=== PATIENT | male | born 1990 | race African-American/Black ===

== ENCOUNTER 2017-04-08 15:00 | Emergency (ER) | payer BC, OTHER ==
[2017-04-08 15:14] VITALS: BP 128/77
--- NOTE | 2017-04-08 17:01 | EDM.PDOC ---
ED HPI GENERAL MEDICAL PROBLEM - General Chief Complaint: Genitourinary Problem Stated Complaint: STD TESTING Time Seen by Provider: 04/08/17 15:40 Source of Information: Reports: Patient History Limitations: Reports: No Limitations - History of Present Illness INITIAL COMMENTS - FREE TEXT/NARRATIVE: 27-year-old male presents for evaluation treatment of STD testing. Patient reports on 03-22 he tested positive for chlamydia. Reports he was given azithromycin 1 g 1 dose. Reports he had intercourse last 2 and half weeks ago. He states this past week he's now been experiencing similar symptoms again. Current symptoms include dysuria and increased urinary frequency. He is unsure if he is having any penile discharge. No penile rashes. No fevers, chills, nausea or vomiting. Patient reports his partner was recently tested. She does not know her results and should find out tomorrow. - Related Data Allergies Allergy/AdvReac Type Severity Reaction Status Date / Time No Known Allergies Allergy Verified 05/15/16 12:29 Home Meds: Home Meds . [No Known Home Meds] 04/08/17 [History] Past Medical History - Past Health History Medical/Surgical History: Denies Medical/Surgical History - Past Surgical History Male Surgical History: Reports: Other (See Below) Other Male Surgeries/Procedures: tested positive for STD Social & Family History - Tobacco Use Smoking Status *Q: Never Smoker - Caffeine Use Caffeine Use: Reports: None - Recreational Drug Use Recreational Drug Use: No Recreational Drug Type: Reports: Marijuana/Hashish ED ROS GENERAL - Review of Systems Review Of Systems: See Below Constitutional: Denies: Fever, Chills GI/Abdominal: Denies: Nausea, Vomiting : Reports: Discharge (questionable), Dysuria, Frequency Skin: Denies: Rash ED EXAM, RENAL/ - Physical Exam Exam: See Below Exam Limited By: No Limitations General Appearance: Alert, WD/WN, No Apparent Distress Respiratory/Chest: No Respiratory Distress, Lungs Clear, Normal Breath Sounds Cardiovascular: Normal Peripheral Pulses, Regular Rate, Rhythm, No Murmur Neurological: Alert, Oriented, Normal Cognition Psychiatric: Normal Affect, Normal Mood Skin Exam: Warm, Dry, Normal Color Course - Vital Signs Last Recorded V/S: Last Vital Signs Temp 36.8 C 04/08/17 15:13 Pulse 62 04/08/17 15:13 Resp 20 04/08/17 15:13 BP 128/77 04/08/17 15:13 Pulse Ox 100 04/08/17 15:13 - Orders/Labs/Meds Labs: Laboratory Tests 04/08/17 04/08/17 Range/Units 15:50 15:50 Urine Color Yellow (Yellow) Urine Appearance Clear (Clear) Urine pH 7.0 (5.0-8.0) Ur Specific [place] 1.015 (1.005-1.030) Urine Protein Negative (Negative) Urine Glucose (UA) Negative (Negative) Urine Ketones Negative (Negative) Urine Occult Blood Negative (Negative) Urine Nitrite Negative (Negative) Urine Bilirubin Negative (Negative) Urine Urobilinogen 0.2 (0.2-1.0) Ur Leukocyte Esterase Negative (Negative) Urine RBC Not seen (0-5) /hpf Urine WBC Not seen (0-5) /hpf Ur Epithelial Cells 0-5 (0-5) /hpf Urine Bacteria Not seen (FEW) /hpf Urine Mucus Not seen (FEW) /hpf C trachomatis DNA (PCR) Not detected N gonorrhoeae DNA (PCR) Not detected - Re-Assessments/Exams Free Text/Narrative Re-Assessment/Exam: 04/08/17 17:53 Reviewed the lab results with the patient. Likely urethritis causing symptoms. Urine sent for culture. Will discharge him at this time. Discharge instructions as documented. Departure - Departure Time of Disposition: 17:54 Disposition: Home, Self-Care 01 Condition: Good Clinical Impression: Urethritis - Discharge Information Instructions: Urethritis, Adult Referrals: Dianna Wong PA-C [Primary Care Provider] - Forms: ED Department Discharge Additional Instructions: make sure you are drinking plenty of fluids. If your symptoms do not improve much in a week follow-up with your family medicine provider. Please return to the ER if your Symptoms change or worsen. If her partner does test positive, make sure she gets her antibiotics and abstain from intercourse for the next week.
[2017-04-08 17:36] LABS: C. TRACHOMATIS BY PCR NOT DETECTED; N. GONORRHOEAE BY PCR NOT DETECTED
== END 2017-04-08 18:00 | disposition home or self-care (01) ==
LOC: SUPCPDRO 15:00 → JD.ED 15:00
DX: N34.2 Other urethritis (principal)
CPT/HCPCS: 81001; 87086; 87491; 87591; 99283; 99284

== ENCOUNTER 2017-05-28 20:51 | Emergency (ER) | payer BC ==
[2017-05-28 21:22] VITALS: BP 121/67
[2017-05-28] MEDS ORDERED: Ondansetron 4 MG/2 ML SDV IVPUSH ONE (21:43)
[2017-05-28] MEDS ORDERED: Ketorolac 30 MG/ML SDV IVPUSH ONE (21:43)
[2017-05-28] MEDS ORDERED: Sodium Chloride 0.9% 1,000 ML IV ONE (21:43)
--- NOTE | 2017-05-28 21:57 | EDM.PDOC ---
<Poncho Overton - Last Filed: 05/29/17 01:11> ED HPI GENERAL MEDICAL PROBLEM - General Chief Complaint: Fever Stated Complaint: FEVER [place] SORE THOAT Time Seen by Provider: 05/28/17 21:36 - Related Data Allergies Allergy/AdvReac Type Severity Reaction Status Date / Time No Known Allergies Allergy Verified 05/28/17 21:22 Home Meds: Home Meds . [No Known Home Meds] 04/08/17 [History] Amoxicillin. 05/31/17 [History] Ondansetron [Zofran ODT] 4 mg PO Q6H PRN #7 tab.dis 05/31/17 [Rx] Course - Vital Signs Last Recorded V/S: Last Vital Signs Temp 38.7 C H 05/28/17 21:20 Pulse 100 05/28/17 21:20 Resp 16 05/28/17 21:20 BP 121/67 05/28/17 21:20 Pulse Ox 100 05/28/17 21:20 - Orders/Labs/Meds Labs: Laboratory Tests 05/28/17 05/28/17 05/28/17 Range/Units 22:05 22:05 22:05 WBC 11.67 H (4.23-9.07) K/mm3 RBC 4.98 (4.63-6.08) M/mm3 Hgb 14.6 (13.7-17.5) gm/L Hct 43.5 (40.1-51.0) % MCV 87.3 (79.0-92.2) fl MCH 29.3 (25.7-32.2) pg MCHC 33.6 (32.2-35.5) g/dl RDW Std Deviation 39.0 (35.1-43.9) fL Plt Count 225 (163-337) K/mm3 MPV 10.4 (9.4-12.3) fl Neutrophils % (Manual) 71 H (40-60) % Band Neutrophils % 1 (0-10) % Lymphocytes % (Manual) 16 L (20-40) % Atypical Lymphs % 0 % Monocytes % (Manual) 11 H (2-10) % Eosinophils % (Manual) 0 L (0.8-7.0) % Basophils % (Manual) 0 L (0.2-1.2) Myelocytes % 1 Platelet Estimate Adequate RBC Morph Comment Normal Sodium 138 (136-145) mEq/L Potassium 3.6 (3.5-5.1) mEq/L Chloride 101 (98-107) mEq/L Carbon Dioxide 24 (21-32) mEq/L Anion Gap 16.6 H (5-15) BUN 11 (7-18) mg/dL Creatinine 1.3 (0.7-1.3) mg/dL Est Cr Clr Drug Dosing 79.09 mL/min Estimated GFR (MDRD) > 60 (>60) mL/min BUN/Creatinine Ratio 8.5 L (14-18) Glucose 95 (74-106) mg/dL Calcium 9.2 (8.5-10.1) mg/dL Total Bilirubin 0.4 (0.2-1.0) mg/dL AST 31 (15-37) U/L ALT 33 (16-63) U/L Alkaline Phosphatase 64 (46-116) U/L C-Reactive Protein 11.4 H* (<1.0) mg/dL Total Protein 8.4 H (6.4-8.2) g/dl Albumin 3.6 (3.4-5.0) g/dl Globulin 4.8 gm/dL Albumin/Globulin Ratio 0.8 L (1-2) Monoscreen Negative (NEGATIVE) Meds: Medications Discontinued Medications Generic Name Dose Route Start Last Admin Trade Name Freq PRN Reason Stop Dose Admin Sodium Chloride 1,000 mls @ 999 mls/hr 05/28/17 21:43 05/28/17 22:04 Normal Saline IV 05/28/17 22:43 999 mls/hr ONETIME ONE Administration Ceftriaxone Sodium 2 gm/ 100 mls @ 200 mls/hr 05/28/17 23:18 05/28/17 23:48 Sodium Chloride IV 05/28/17 23:47 Not Given ONETIME ONE Ceftriaxone Sodium 2 gm/ 100 mls @ 200 mls/hr 05/28/17 23:33 05/28/17 23:45 Sodium Chloride IV 05/29/17 00:02 200 mls/hr ONETIME ONE Administration Iopamidol 80 ml 05/29/17 00:47 05/29/17 00:48 Isovue-300 (61%) IVPUSH 05/29/17 00:48 80 ml ONETIME ONE Administration Ketorolac Tromethamine 30 mg 01/22/18 21:43 05/28/17 22:04 Toradol IVPUSH 05/28/17 21:44 30 mg ONETIME ONE Administration Ondansetron HCl 4 mg 05/28/17 21:43 05/28/17 22:04 Zofran IVPUSH 05/28/17 21:44 4 mg ONETIME ONE Administration Sodium Chloride 10 ml 05/28/17 21:43 05/29/17 00:49 Saline Flush FLUSH 10 ml ASDIRECTED PRN Administration Keep Vein Open - Re-Assessments/Exams Free Text/Narrative Re-Assessment/Exam: 05/29/17 01:11 Taking over for Riya. His WBC was elevated at 11.67. His CRP was elevated at 11.4. His mono was negative. His influenza was negative. His CT shows palatine tonsils appear swollen and have patchy fluid infiltration. No defined or drainable abscess at this time. Microabscesses would be a consideration. No evidence of airway compromise. He feels better. I will have him continue the amoxicillin. I will give him a little something for pain. Departure - Departure Time of Disposition: 01:15 Disposition: Home, Self-Care 01 Condition: Good Clinical Impression: Acute bacterial tonsillitis - Discharge Information Instructions: Tonsillitis, [id number] Referrals: Dianna Wong PA-C [Primary Care Provider] - Forms: ED Department Discharge Additional Instructions: Take your medication as prescribed. Take motrin or aleve for pain. You may also take some hydrocodone for pain as needed. Drink plenty of fluids. Please return if you are worse. <Riya Carrillo F - Last Filed: 06/06/17 11:30> ED HPI GENERAL MEDICAL PROBLEM - General Source of Information: Reports: Patient History Limitations: Reports: No Limitations - History of Present Illness INITIAL COMMENTS - FREE TEXT/NARRATIVE: 27-year-old male presents for evaluation and treatment of fevers and a sore throat. Patient reports that his symptoms began this weekend. He was seen at the walk-in clinic yesterday. Reports he had an influenza and strep done which were both negative. He was prescribed viscous lidocaine and amoxicillin. He was given amoxicillin. He has only taken 1 tablet thus FAR DUE TO THE THROAT PAIN. HE REPORTS HE'S HAD A SORE THROAT ON AND OFF FOR THE LAST MONTH. REPORTS THAT THE FEVER STARTED YESTERDAY. HE HAS ALSO HAD A DRY NONPRODUCTIVE COUGH. HE has also had MIGRAINES AND NAUSEA. HE STATES HE'S HAD SOME STOMACH PAINS BUT ATTRIBUTES TO NOT EATING. Does not have MUCH OF AN APPETITE due to HIS FEVERS AND SORE THROAT. NO VOMITING OR DIARRHEA. PATIENT DID NOT GET INFLUENZA VACCINE THIS season. PATIENT REPORTS THAT HE DID TRAVEL TO [place] RECENTLY. Throat Pain Score (Numeric/FACES): 6 Past Medical History - Past Health History Medical/Surgical History: Denies Medical/Surgical History - Past Surgical History Male Surgical History: Reports: Other (See Below) Other Male Surgeries/Procedures: tested positive for STD Social & Family History - Tobacco Use Smoking Status *Q: Never Smoker - Caffeine Use Caffeine Use: Reports: None - Recreational Drug Use Recreational Drug Use: No Recreational Drug Type: Reports: Marijuana/Hashish ED ROS ENT - Review of Systems Review Of Systems: See Below Constitutional: Reports: Fever HEENT: Reports: Ear Pain, Throat Pain Respiratory: Reports: Cough. Denies: Sputum GI/Abdominal: Reports: Abdominal Pain, Nausea. Denies: Diarrhea, Vomiting Neurological: Reports: Headache ED EXAM, ENT - Physical Exam Exam: See Below Exam Limited By: No Limitations General Appearance: Alert, WD/WN, Mild Distress, Thin Eye Exam: Bilateral Eye: Normal Inspection Ears: Normal External Exam, Normal Canal, Hearing Grossly Normal, Normal TMs Nose: Normal Inspection Mouth/Throat: Normal Inspection, Normal Gums, Normal Lips, Pharyngeal Erythema, Tonsillar Erythema, Tonsillar Exudates, Tonsillar Swelling. No: Uvular Deviation Neck: Normal Inspection, Supple, Non-Tender, Lymphadenopathy (L), Lymphadenopathy (R) Respiratory/Chest: No Respiratory Distress, Lungs Clear, Normal Breath Sounds Cardiovascular: Normal Peripheral Pulses, Regular Rate, Rhythm, No Murmur GI/Abdominal: Normal Bowel Sounds, Soft, Non-Tender Neurological: Alert, Oriented, Normal Cognition Psychiatric: Normal Affect, Normal Mood Skin: Warm, Dry, Increased Warmth Course - Orders/Labs/Meds Labs: Laboratory Tests 05/28/17 05/28/17 05/28/17 Range/Units 22:05 22:05 22:05 WBC 11.67 H (4.23-9.07) K/mm3 RBC 4.98 (4.63-6.08) M/mm3 Hgb 14.6 (13.7-17.5) gm/L Hct 43.5 (40.1-51.0) % MCV 87.3 (79.0-92.2) fl MCH 29.3 (25.7-32.2) pg MCHC 33.6 (32.2-35.5) g/dl RDW Std Deviation 39.0 (35.1-43.9) fL Plt Count 225 (163-337) K/mm3 MPV 10.4 (9.4-12.3) fl Neutrophils % (Manual) 71 H (40-60) % Band Neutrophils % 1 (0-10) % Lymphocytes % (Manual) 16 L (20-40) % Atypical Lymphs % 0 % Monocytes % (Manual) 11 H (2-10) % Eosinophils % (Manual) 0 L (0.8-7.0) % Basophils % (Manual) 0 L (0.2-1.2) Myelocytes % 1 Platelet Estimate Adequate RBC Morph Comment Normal Sodium 138 (136-145) mEq/L Potassium 3.6 (3.5-5.1) mEq/L Chloride 101 (98-107) mEq/L Carbon Dioxide 24 (21-32) mEq/L Anion Gap 16.6 H (5-15) BUN 11 (7-18) mg/dL Creatinine 1.3 (0.7-1.3) mg/dL Est Cr Clr Drug Dosing 79.09 mL/min Estimated GFR (MDRD) > 60 (>60) mL/min BUN/Creatinine Ratio 8.5 L (14-18) Glucose 95 (74-106) mg/dL Calcium 9.2 (8.5-10.1) mg/dL Total Bilirubin 0.4 (0.2-1.0) mg/dL AST 31 (15-37) U/L ALT 33 (16-63) U/L Alkaline Phosphatase 64 (46-116) U/L C-Reactive Protein 11.4 H* (<1.0) mg/dL Total Protein 8.4 H (6.4-8.2) g/dl Albumin 3.6 (3.4-5.0) g/dl Globulin 4.8 gm/dL Albumin/Globulin Ratio 0.8 L (1-2) Monoscreen Negative (NEGATIVE) - Re-Assessments/Exams Free Text/Narrative Re-Assessment/Exam: 05/29/17 23:00 rapid strep returned negative rapid flu returned negative. I suspect he has another type of strep such as group C that is not being picked up on rapid. Given his prolonged period of sore throat will obtain a neck CT to ensure he does not have an abscess. Chest xray showed no acute intrathoracic process. Discussed the case with Dr. Overton. He agrees to take over care as my shift has ended. He will wait for CT report. Agrees with treatment plan. If CT is unremarkable abscess plan will be to stay on amoxicin and give medication for symptomatic care.
[2017-05-28] MEDS: Sodium Chloride 0.9% 10 ML Syringe FLUSH PRN (22:04)
[2017-05-28] MEDS ORDERED: cefTRIAXone 2 GM in Sodium Chloride 0.9% 100 ML IV ONE ×2 (23:18→23:33)
[2017-05-29] MEDS ORDERED: Iopamidol 612 MG/ML 100 ML Bottle IVPUSH ONE (00:47)
[2017-05-29] MEDS: Sodium Chloride 0.9% 10 ML Syringe FLUSH PRN (00:49)
--- NOTE | 2017-05-29 06:56 | CR ---
Chest: Two views of the chest were obtained. Comparison: No prior chest x-ray. Heart size and mediastinum are normal. Lungs are clear. Bony structures are unremarkable. Impression: 1. Nothing acute is identified on two-view chest x-ray. Diagnostic code #1
--- NOTE | 2017-05-29 07:07 | CT ---
CT neck Technique: Multiple axial sections through the neck were obtained. Intravenous contrast was utilized. Findings: Swelling noted in the in the peritonsillar regions on both sides which is more prominent on the right side. Small low density areas are scattered within both areas of the peritonsillar regions compatible with edema. Neck shows no adenopathy. Normal enhancing vascular structures are noted. Parotid and submandibular salivary glands are within normal limits. Small retention cyst is incidentally noted within the left maxillary sinus. Thyroid gland appears within normal limits. Visualized lung apices are clear. Bony structures appear within normal limits. Impression: 1. Soft tissue swelling is seen within the peritonsillar regions with multiple small areas of low density compatible with edema. No drainable abscess is seen at this time although findings do put the patient at risk for future abscess. 2. No additional abnormality is identified on CT study of the neck. Diagnostic code #3 Agree with preliminary report issued by [facility] ([facility] preliminary report dictated on 05/29/17, 1:58 AM Central Time)
== END 2017-05-29 01:20 | disposition home or self-care (01) ==
LOC: JD.ED 20:51
DX: J03.80 Acute tonsillitis due to other specified organisms (principal); B96.89 Other specified bacterial agents as the cause of diseases classified elsewhere
CPT/HCPCS: 36415; 70491; 71046; 80053; 85025; 86140; 86308; 87081; 87430; 87804; 96361; 96365; 96375; 99284; J0696; J1885; J2405; J7030; J7040; J7050; Q9967; 99283

== ENCOUNTER 2017-05-31 11:59 | Emergency (ER) | payer BC ==
[2017-05-31 12:21] VITALS: BP 116/73
[2017-05-31] MEDS ORDERED: Famotidine 20 MG/2 ML SDV IVPUSH ONE (12:28)
[2017-05-31] MEDS ORDERED: Ondansetron 4 MG/2 ML SDV IVPUSH ONE (12:28)
[2017-05-31] MEDS ORDERED: Sodium Chloride 0.9% 10 ML Syringe FLUSH PRN (12:28)
[2017-05-31] MEDS ORDERED: Sodium Chloride 0.9% 1,000 ML IV SCH ×2 (12:30→14:00)
[2017-05-31] MEDS ORDERED: Ketorolac 30 MG/ML SDV IVPUSH SCH (12:45)
--- NOTE | 2017-05-31 13:48 | EDM.PDOC ---
ED HPI GENERAL MEDICAL PROBLEM - General Chief Complaint: Gastrointestinal Problem Stated Complaint: FEVER/ABDOMINAL PAIN Time Seen by Provider: 05/31/17 12:17 Source of Information: Reports: Patient, RN Notes Reviewed - History of Present Illness INITIAL COMMENTS - FREE TEXT/NARRATIVE: 27 year old male with "sore throat for about the past 4 weeks" Had influenza screen, strep screen here at the ED about 4 days ago, neg. Continues with throat discomfort, onset of nausea, vomiting, diarrhea, fever and chills yesterday that continues today. Mild upper abd cramping. Not coughing or congested. Headache Pain Score (Numeric/FACES): 9 Abdominal Pain Score (Numeric/FACES): 9 - Related Data Allergies Allergy/AdvReac Type Severity Reaction Status Date / Time No Known Allergies Allergy Verified 05/31/17 12:12 Home Meds: Home Meds Amoxicillin. 05/31/17 [History] Ondansetron [Zofran ODT] 4 mg PO Q6H PRN #7 tab.dis 05/31/17 [Rx] Past Medical History - Past Health History Medical/Surgical History: Denies Medical/Surgical History Social & Family History - Family History Family Medical History: Noncontributory - Tobacco Use Smoking Status *Q: Never Smoker Second Hand Smoke Exposure: No - Caffeine Use Caffeine Use: Reports: Energy Drinks - Recreational Drug Use Recreational Drug Use: No ED ROS GENERAL - Review of Systems Review Of Systems: See Below Constitutional: Reports: Fever, Chills HEENT: Reports: Throat Pain. Denies: Rhinitis, Sinus Problem Respiratory: Denies: Shortness of Breath Cardiovascular: Denies: Chest Pain GI/Abdominal: Reports: Abdominal Pain, Diarrhea, Nausea, Vomiting Musculoskeletal: Reports: No Symptoms Skin: Reports: No Symptoms Neurological: Reports: Dizziness, Headache (mild) ED EXAM, GI/ABD - Physical Exam Exam: See Below General Appearance: Alert, Mild Distress Eyes: Bilateral: Normal Appearance Throat/Mouth: Other (oral mucosa mildly dry) Course - Vital Signs Last Recorded V/S: Last Vital Signs Temp 99.0 F 05/31/17 15:06 Pulse 86 05/31/17 14:04 Resp 18 05/31/17 14:04 BP 116/73 05/31/17 12:19 Pulse Ox 97 05/31/17 14:04 - Orders/Labs/Meds Orders: Active Orders 24 hr Category Date Time Status Peripheral IV Care [RC] . DIRECTED Care 05/31/17 12:28 Active CULTURE STREP A CONFIRMATION [RM] Stat Lab 05/31/17 12:40 Results STREP SCRN A RAPID W CULT CONF [RM] Stat Lab 05/31/17 12:40 Results Peripheral IV Insertion Adult [OM.PC] Stat Oth 05/31/17 12:27 Ordered Labs: Laboratory Tests 05/31/17 05/31/17 05/31/17 Range/Units 12:40 12:40 12:40 WBC 14.16 H (4.23-9.07) K/mm3 RBC 4.82 (4.63-6.08) M/mm3 Hgb 13.9 (13.7-17.5) gm/L Hct 41.5 (40.1-51.0) % MCV 86.1 (79.0-92.2) fl MCH 28.8 (25.7-32.2) pg MCHC 33.5 (32.2-35.5) g/dl RDW Std Deviation 38.3 (35.1-43.9) fL Plt Count 254 (163-337) K/mm3 MPV 10.0 (9.4-12.3) fl Neut % (Auto) 75.7 H (34.0-67.9) % Lymph % (Auto) 7.3 L (21.8-53.1) % [place] % (Auto) 16.5 H (5.3-12.2) % Eos % (Auto) 0 L (0.8-7.0) Baso % (Auto) 0.1 (0.1-1.2) % Neut # (Auto) 10.70 H (1.78-5.38) K/mm3 Lymph # (Auto) 1.04 L (1.32-3.57) K/mm3 [place] # (Auto) 2.34 H (0.30-0.82) K/mm3 Eos # (Auto) 0.00 L (0.04-0.54) K/mm3 Baso # (Auto) 0.02 (0.01-0.08) K/mm3 Manual Slide Review Abnormal smear Sodium 137 (136-145) mEq/L Potassium 3.2 L (3.5-5.1) mEq/L Chloride 100 (98-107) mEq/L Carbon Dioxide 23 (21-32) mEq/L Anion Gap 17.2 H (5-15) BUN 7 (7-18) mg/dL Creatinine 1.4 H (0.7-1.3) mg/dL Est Cr Clr Drug Dosing 73.44 mL/min Estimated GFR (MDRD) > 60 (>60) mL/min BUN/Creatinine Ratio 5.0 L (14-18) Glucose 129 H (74-106) mg/dL Calcium 9.1 (8.5-10.1) mg/dL Total Bilirubin 0.4 (0.2-1.0) mg/dL AST 36 (15-37) U/L ALT 42 (16-63) U/L Alkaline Phosphatase 72 (46-116) U/L Total Protein 8.5 H (6.4-8.2) g/dl Albumin 3.2 L (3.4-5.0) g/dl Globulin 5.3 gm/dL Albumin/Globulin Ratio 0.6 L (1-2) Lipase 80 (73-393) U/L Meds: Medications Discontinued Medications Generic Name Dose Route Start Last Admin Trade Name Freq PRN Reason Stop Dose Admin Famotidine 20 mg 05/31/17 12:28 05/31/17 12:56 Pepcid IVPUSH 05/31/17 12:29 20 mg ONETIME ONE Administration Sodium Chloride 1,000 mls @ 999 mls/hr 05/31/17 12:30 05/31/17 12:56 Normal Saline IV 999 mls/hr ONETIME RABIA Administration Sodium Chloride 1,000 mls @ 999 mls/hr 05/31/17 14:00 05/31/17 14:03 Normal Saline IV 999 mls/hr ONETIME RABIA Administration Ketorolac Tromethamine 30 mg 05/31/17 12:45 05/31/17 12:56 Toradol IVPUSH 30 mg ONETIME RAIBA Administration Metoclopramide HCl 5 mg 05/31/17 13:57 05/31/17 14:03 Reglan IVPUSH 05/31/17 13:58 5 mg ONETIME ONE Administration Ondansetron HCl 4 mg 05/31/17 12:28 05/31/17 12:56 Zofran IVPUSH 05/31/17 12:29 4 mg ONETIME ONE Administration Sodium Chloride 10 ml 05/31/17 12:28 05/31/17 12:56 Saline Flush FLUSH 10 ml ASDIRECTED PRN Administration Keep Vein Open - Re-Assessments/Exams Free Text/Narrative Re-Assessment/Exam: 05/31/17 19:35. temp did come down to normal with time, did give 2 liters IV fluid, zofran. Feeling much better at time of discharge. Departure - Departure Time of Disposition: 15:24 Disposition: Home, Self-Care 01 Condition: Fair Clinical Impression: Vomiting, Diarrhea Abdominal pain Qualifiers: Abdominal location: upper abdomen, unspecified Qualified Code(s): R10.10 - Upper abdominal pain, unspecified Pharyngitis Qualifiers: Pharyngitis/tonsillitis etiology: unspecified etiology Qualified Code(s): J02.9 - Acute pharyngitis, unspecified - Discharge Information Prescriptions: Ondansetron [Zofran ODT] 4 mg PO Q6H PRN #7 tab.dis PRN Reason: Nausea/Vomiting Instructions: Viral Gastroenteritis, Adult, [id number] Referrals: Dianna Wong PA-C [Primary Care Provider] - Forms: ED Department Discharge Additional Instructions: Clear liquids only for the next 24 hours, than careful bland diet as tolerated, zofran if needed for further nausea or vomiting. Begin probiotic, available OTC , twice daily for the next 5 days. Follow up clinic if not much better by tomorrow, call [phone] for appointment as needed, return to ED if symptoms worsening in any way. - My Orders Last 24 Hours: My Active Orders 05/31/17 12:27 Peripheral IV Insertion Adult [OM.PC] Stat 05/31/17 12:28 Peripheral IV Care [RC] . DIRECTED 05/31/17 12:40 CULTURE STREP A CONFIRMATION [RM] Stat STREP SCRN A RAPID W CULT CONF [RM] Stat - Assessment/Plan Last 24 Hours: My Active Orders 05/31/17 12:27 Peripheral IV Insertion Adult [OM.PC] Stat 05/31/17 12:28 Peripheral IV Care [RC] . DIRECTED 05/31/17 12:40 CULTURE STREP A CONFIRMATION [RM] Stat STREP SCRN A RAPID W CULT CONF [RM] Stat
[2017-05-31] MEDS ORDERED: Metoclopramide 10 MG/2 ML SDV IVPUSH ONE (13:57)
== END 2017-05-31 15:42 | disposition home or self-care (01) ==
LOC: MERGE 11:59 → EDBD 11:59 → JD.ED 11:59
DX: J02.9 Acute pharyngitis, unspecified (principal); R11.2 Nausea with vomiting, unspecified; R10.10 Upper abdominal pain, unspecified
CPT/HCPCS: 36415; 80053; 83690; 85025; 87081; 87430; 96361; 96374; 96375; 99284; J1885; J2405; J2765; J7040; J7050

== ENCOUNTER 2019-08-23 18:24 | Emergency (ER) | payer BC ==
[2019-08-23 18:46] VITALS: BP 134/81; PULSE 62
--- NOTE | 2019-08-23 19:04 | EDM.PDOC ---
ED HPI GENERAL MEDICAL PROBLEM - General Chief Complaint: Abdominal Pain Stated Complaint: ABDOMINAL PAIN Time Seen by Provider: 08/23/19 18:48 Source of Information: Reports: Patient History Limitations: Reports: No Limitations - History of Present Illness INITIAL COMMENTS - FREE TEXT/NARRATIVE: Patient is a 29-year-old male who presents with complaints of generalized abdominal pain for the last 5 days. He describes it as a crampy pain. When asked to localize the pain he points to the mid to left lower quadrant. Patient states he has not had a good bowel movement for the last 5 days. States he went a little bit yesterday but it was like "hard ziyad ". He has been taking milk of mag for the last couple days without results. He has been passing gas and belching frequently. He denies any history of chronic constipation or other GI pathology. He has not had any nausea or vomiting. Denies any fever or chills. Abdominal Pain Score (Numeric/FACES): 9 - Related Data Allergies Allergy/AdvReac Type Severity Reaction Status Date / Time No Known Allergies Allergy Verified 08/23/19 18:46 Home Meds: Home Meds . [No Known Home Meds] 04/08/17 [History] Past Medical History - Past Health History Medical/Surgical History: Denies Medical/Surgical History - Past Surgical History Male Surgical History: Reports: Other (See Below) Other Male Surgeries/Procedures: tested positive for STD Social & Family History - Family History Family Medical History: Noncontributory - Tobacco Use Smoking Status *Q: Never Smoker - Caffeine Use Caffeine Use: Reports: Tea - Recreational Drug Use Recreational Drug Use: No ED ROS GENERAL - Review of Systems Review Of Systems: Comprehensive ROS is negative, except as noted in HPI. ED EXAM, GI/ABD - Physical Exam Exam: See Below Exam Limited By: No Limitations General Appearance: Alert, WD/WN, No Apparent Distress Respiratory/Chest: No Respiratory Distress, Lungs Clear, Normal Breath Sounds, No Accessory Muscle Use, Chest Non-Tender Cardiovascular: Normal Peripheral Pulses, Regular Rate, Rhythm, No Edema, No Gallop, No JVD, No Murmur, No Rub GI/Abdominal Exam: Normal Bowel Sounds, Soft, No Organomegaly, No Distention, No Abnormal Bruit, No Mass, Pelvis Stable, Distended (slightly), Tender (mild LLQ). No: Guarding, Rigid, Rebound Neurological: Alert, Oriented, CN II-XII Intact, Normal Cognition, Normal Gait, Normal Reflexes, No Motor/Sensory Deficits Psychiatric: Normal Affect, Normal Mood Skin Exam: Warm, Dry, Intact, Normal Color, No Rash Course - Vital Signs Last Recorded V/S: Last Vital Signs Temp 97.6 F 08/23/19 18:44 Pulse 62 08/23/19 18:44 Resp 18 08/23/19 18:44 BP 134/81 08/23/19 18:44 Pulse Ox 100 08/23/19 18:44 - Orders/Labs/Meds Orders: Active Orders 24 hr Category Date Time Status Abdomen 2V AP Flat Upright [CR] Stat Exams 08/23/19 18:53 Taken Meds: Medications Discontinued Medications Generic Name Dose Route Start Last Admin Trade Name Catrachito PRN Reason Stop Dose Admin Magnesium Citrate 296 ml 08/23/19 19:27 08/23/19 19:35 Citrate Of Magnesia PO 08/23/19 19:28 296 ml ONETIME ONE Administration - Re-Assessments/Exams Free Text/Narrative Re-Assessment/Exam: 08/23/19 19:22 xray of the abdomen does show a collection of stool throughout the colon. Discussed the option of an enema vs mag citirate with the patient. He would like to go home and take the magnesium citirate. Advised that if he continues to have pain after he has a good BM, he should return for reevalution. He is in agreement with this plan. Discharge instructions as documented. Departure - Departure Time of Disposition: 19:24 Disposition: Home, Self-Care 01 Condition: Good Clinical Impression: Abdominal pain - Discharge Information *PRESCRIPTION DRUG MONITORING PROGRAM REVIEWED*: No *COPY OF PRESCRIPTION DRUG MONITORING REPORT IN PATIENT AMELIA: No Instructions: Constipation, Adult, [id number] Referrals: PCP,None [Primary Care Provider] - Forms: ED Department Discharge Additional Instructions: You were seen in the emergency department for abdominal pain and constipation. An xray of your abdomen was completed and does show a collection of stool throughout your colon. You have been sent home with a bottle of magnesium citrate. Recommend that you drink the entire bottle when you get home. This will produce a number of bowel movements, some of which may be loose; however, you should have relief from your pain once you have cleared your bowel. If you continue to have pain after you have cleared your bowel, I would recommend that you return to the ER for reevaluation. Sepsis Event Note - Evaluation Sepsis Screening Result: No Definite Risk - Focused Exam Vital Signs: Vital Signs Temp Pulse Resp BP Pulse Ox 08/23/19 18:44 97.6 F 62 18 134/81 100 Date Exam was Performed: 08/23/19 Time Exam was Performed: 20:40 - My Orders Last 24 Hours: My Active Orders 08/23/19 18:53 Abdomen 2V AP Flat Upright [CR] Stat - Assessment/Plan Last 24 Hours: My Active Orders 08/23/19 18:53 Abdomen 2V AP Flat Upright [CR] Stat
[2019-08-23] MEDS ORDERED: Magnesium Citrate Solution 296 ML Bottle PO ONE (19:27)
--- NOTE | 2019-08-24 10:28 | CR ---
Abdomen: Supine and upright views of the abdomen were obtained. Comparison: No prior abdominal x-ray, prior CT abdomen and pelvis exam of 05/25/16 is available. Bowel gas pattern appears within normal limits. No abnormal calcifications or soft tissue abnormality is seen. Bony structures appear within normal limits. Impression: 1. Nothing acute is appreciated on 2 view abdominal x-ray. Diagnostic code #1 This report was dictated in MDT
== END 2019-08-23 19:37 | disposition home or self-care (01) ==
LOC: JD.ED 18:24
DX: R10.84 Generalized abdominal pain (principal)
CPT/HCPCS: 74019; 99284; A9270; 99283